=== PATIENT | female | born 1965 | race Caucasian/White ===

== ENCOUNTER 2020-11-12 09:31 | Emergency (ER) | payer MEDICAID, SELFPAY ==
[2020-11-12 09:35] VITALS: BP 161/92; PULSE 64; RESP 16; TEMP 36.8; O2SAT 96; BMI 29.2
[2020-11-12 09:44] VITALS: BP 161/92; PULSE 60; PULSE 62; RESP 18; O2SAT 97
--- NOTE | 2020-11-12 09:48 | XR_ITS ---
WS: [id number] XR hand RT min 3V* 35023 REASON FOR EXAM: pain, trauma FINDINGS: There is deformity of the DIP joint of the middle finger of the right hand. The distal phalanx is saira ewhat laterally subluxed compared to the middle phalanx. This could indicate a ligamentous injury at the joint level. No associated bony abnormality is identified. No significant abnormality is identified in the remainder of the examination. XR/XR hand RT min 3V* [id number] IMPRESSION: Possible ligamentous injury of the DIP of the middle finger as above.
--- NOTE | 2020-11-12 10:04 | W.ED.EXTPRO ---
HPI - Extremity Problem General: Chief complaint: Extremity Injury, Upper Stated complaint: R. Hand Injury Time Seen by Provider: 11/12/20 09:40 History of Present Illness: HPI Narrative: Complains about right hand pain after striking it on the ground to her door. She does have mild swelling also had cat scratch bite to the hand denies any redness fever chills. MD Complaint: extremity pain and extremity swelling Onset (ago): day(s) Pain Consistency: constant Location: right and lower extremity Severity scale (1-10): 4 Quality: aching Radiation: none Relieving factors: immobilization Exacerbating factors: range of motion Associated symptoms: Reports no associated symptoms; Deny chest pain, fever(s) or rash Review of Systems Const: Denies: fever(s), chills or body aches Eyes: Denies: change in vision or blurry vision ENMT: Denies: throat pain or nasal congestion Card: Denies: chest pain or dyspnea on exertion Resp: Denies: dyspnea, productive cough or non-productive cough GI: Denies: abdominal pain, nausea or vomiting Musc: Reports: extremity pain Skin/Breast: Denies: rash Neuro: Denies: headache(s) Psych: Denies: anxiety or depression Omer/Lymph: Denies: easy bruising PFSH ED PFSH: Social History Current gender identity: Female Physical Exam Const: COMMON NORMALS: no acute distress, average body habitus and patient oriented x3 HENMT: COMMON NORMALS: normocephalic HEAD & SCALP: normal to inspection and normocephalic FACE & SINUS: normal facial exam Eye: COMMON NORMALS: conjunctivae normal GENERAL EYE: appearance normal, both eyes and all related structures CONJUNCTIVA: Yes conjunctivae normal Neck/C-Spine: COMMON NORMALS: no JVD Chest: COMMONS NORMALS: normal inspection of the chest Resp: COMMON NORMALS: normal respiratory effort and clear to auscultation bilaterally AUSCULTATION: clear to auscultation bilaterally Cardio: COMMON NORMALS: no JVD, regular rate and regular rhythm RATE: regular rate RHYTHM: regular rhythm GI: COMMON NORMALS: Normal to inspection, nondistended, normoactive bowel sounds present Extremity: COMMON NORMALS: normal to inspection and full ROM RIGHT UPPER EXTREMITY: Yes hand & digits (Mild swelling tenderness to #3 and 4 digits bruising no redness) Neuro: COMMON NORMALS: patient oriented x3 Skin: OTHER: Right hand with couple scratches to it no redness or erythema noted to the hand mild swelling Course Vital Signs: Vital signs: Vital Signs Temperature 98.2 F 11/12/20 09:35 Pulse Rate 65 11/12/20 10:24 Respiratory Rate 16 11/12/20 10:24 Blood Pressure 118/80 11/12/20 10:24 Pulse Oximetry 99 11/12/20 10:24 MDM - Extremity (Nontraumatic) MDM Narrative: Medical decision making narrative: Patient follow-up with Dr. Maki if no significant provement patient states that her finger already had a slight bend to it from an old injury so radiology finding appears to be chronic instead of new Discharge Plan Discharge Patient Disposition: Home Clinical Impression: Contusion of hand, right Qualifiers: Encounter type: initial encounter Qualified Code(s): S60.221A - Contusion of right hand, initial encounter Condition: Stable Discharge Orders: Discharge ED (Routine); Ordered 11/12/20 Ordered By: Asim Arguelles Referrals: Justice Yao [Primary Care Provider] - Discharge Diet: Usual diet Discharge Activity: Resume usual activity Patient Instructions: Contusion in Adults (ED), Opioid Safety Activity Restrictions/Additional Instructions: Apply ice to area as needed. Follow-up with Dr. Maki if any further problems develop with it. Observe and watch for signs of infection. Coding Level of Care Code ED Etched Circuit Processor for Tamela Fwd Exam Comprehensive
[2020-11-12 10:24] VITALS: BP 118/80; PULSE 65; RESP 16; O2SAT 99
== END 2020-11-12 10:24 | disposition home or self-care (01) ==
PROVIDERS: Emergency Provider Nurse Practitioner Family; PCP Family Medicine
DX: S60.221A Contusion of right hand, initial encounter (principal); W22.8XXA Striking against or struck by other objects, initial encounter
CPT/HCPCS: 73130; 99282

== ENCOUNTER 2022-04-04 11:59 | Outpatient (CLI) | payer MEDICAID, SELFPAY ==
--- NOTE | 2022-04-04 12:10 | MM_ITS ---
WS: [id number] BILATERAL SCREENING DIGITAL TOMOSYNTHESIS MAMMOGRAM WITH CAD HISTORY: SCREENING COMPARISON: 05/28/2019 and 05/03/2018 Bilateral CC and MLO views with tomosynthesis and synthetic mammography submitted. Computer aided det ection analyzed. Breast composition: There are scattered areas of fibroglandular density. No suspicious masses, microc alcifications or architectural distortion. There are several calcifications scattered within the RIGH T breast. Similar to prior studies. MM/[place] [id number] IMPRESSION: BI-RADS: 2-Benign FOLLOW UP: 1 Year Follow-up
== END 2022-04-04 12:00 | disposition home or self-care (01) ==
LOC: RAD 12:00
PROVIDERS: PCP Family Medicine; Visit Provider Family Medicine
DX: Z12.31 Encounter for screening mammogram for malignant neoplasm of breast (principal)
CPT/HCPCS: 77063; 77067

== ENCOUNTER 2024-07-09 11:10 | Outpatient (CLI) | payer MEDICAID, SELFPAY ==
--- NOTE | 2024-07-09 11:20 | MM_ITS ---
WS: [id number] Bilateral screening 3D tomosynthesis digital mammogram, 07/09/2024 11:26 AM Clinical Data: SCREENING Comparison: 04/04/2022, 05/28/2019, 05/03/2018, 06/02/2014, 01/01/2013, 12/26/2011, 08/06/2010, 07/16/2010. Findings: No spiculated masses or clustered calcifications are seen. There are no secondary signs of carcinoma . MM/MM scr BI tomosynthesis [id number] Impression: Negative bilateral mammogram unchanged. Recommend annual screening mammograms. BIRADS: 1 - Negative. FOLLOW UP: 1 Year Follow-up DENSITY: There are scattered areas of fibroglandular density. The CAD mechanical and auto body car checker was used
== END 2024-07-09 11:11 | disposition home or self-care (01) ==
LOC: MOBLMAM 11:21
PROVIDERS: PCP Family Medicine; Visit Provider Family Medicine
DX: Z12.31 Encounter for screening mammogram for malignant neoplasm of breast (principal)
CPT/HCPCS: 77063; 77067

== ENCOUNTER → 2025-03-20 12:21 | Outpatient (BNVA) | payer MEDICAID, SELFPAY | PROVIDERS: PCP Family Medicine; Visit Provider Internal Medicine | DX: R07.89 Other chest pain (principal); I25.10 Atherosclerotic heart disease of native coronary artery without angina pectoris; R06.09 Other forms of dyspnea; Z79.02 Long term (current) use of antithrombotics/antiplatelets; Z79.82 Long term (current) use of aspirin; F17.210 Nicotine dependence, cigarettes, uncomplicated; R07.9 Chest pain, unspecified | CPT/HCPCS: 93005; 99204 ==

== ENCOUNTER 2025-04-22 10:06 | Outpatient (CLI) | payer MEDICAID, SELFPAY ==
--- NOTE | 2025-04-22 | ECG_ITS ---
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 Interpretive Statements Procedure: At the baseline, the blood pressure was 113/69 mmHg with a heart rate of 53 bpm. The electrocardiogram showed normal sinus rhythm, normal axis with mild nonspecific ST and T wave abnormalities. The Lexiscan was infused over a period of 20 seconds. A total of 0.4 mg of Lexiscan was infused. The stress phase was continued for a total of 5 minutes. Heart rate was at the end of stress phase was 77 bpm and a blood pressure of 73/54 mmHg. The EKG at the peak infusion revealed normal sinus rhythm with no significant ST-T wave changes. Sestamibi was injected 20 seconds after the Lexiscan infusion. Blood pressure at the end of recovery phase was 99/81 mmHg with a heart rate of 79 bpm. Conclusion: 1. Normal EKG response to Lexiscan infusion 2. No Lexiscan induced chest pain or cardiac arrhythmia. 3. Hypotensive blood pressure response and normal heart rate response. 4. Nuclear myocardial perfusion scan pending; see separate report. Electronically Signed On 04-22-2025 22:47:45 CDT by Moreno Salter M.D. [email or web address]
[2025-04-22 10:41] VITALS: BMI 26.5
--- NOTE | 2025-04-22 10:42 | NMCV_ITS ---
NM rosalind perf SPECT r/s* [id number] Drift, Laurie Age: 59 Gender: F : 1965 Exam Date: 04/22/2025 10:59 Ordering Phys: Dani Saravia M.D ([email or web address]) Technologist: ROJAS [place]ola Exam Location: [facility] Indications: cp STRESS TEST [facility] IMAGE PROTOCOL Rest/Stress 1 Lexiscan Day Radiopharmaceutical Dose (mCi) Administration Site Administered by Rest: Tc-99m 10.3 IV Karen Maciel, SALES FINANCIAL ANALYST Sestamibi Stress:Tc-99m 32.3 IV Karen Maciel, SALES FINANCIAL ANALYST Sestamibi Rest: 22-Apr-2025 60 Discovery 630 Stress: 22-Apr-2025 30 Discovery 630 0.4mg Lexiscan. Images obtained in supine and prone position. SPECT RESULTS Technical Quality: Good Raw Data Analysis: Normal Image Corrections: No attenuation or motion correction applied Summed Stress Score: 9 Summed Rest Score: 4 Summed Difference Score: 5 PERFUSION FINDINGS There is a large area of severely reduced tracer counts in the mid and basal inferior and inferolateral leiva with a significant amount of reversibility on the rest images compared to the stress images. Findings are consistent with infarction with a medium sized area of moderate radha-infarct ischemia. FUNCTIONAL RESULTS (calculated via Gated SPECT) Stress Image LV EF (%): 57 Stress EDV (mL):95 TID: 1.21 Stress ESV (mL):41 FUNCTIONAL FINDINGS: Inferior wall hypokinesis with overall normal ejection fraction of 57%. IMPRESSIONS 1. Medium sized area of inferior and inferolateral myocardial infarction with a medium sized area of radha-infarct ischemia 2. Inferior wall hypokinesis with overall normal ejection fraction of 57%. Moreno Salter MD, FACC (Electronically Signed) Final Date: 22 April 2025 22:20 S
[2025-04-22 11:47] VITALS: BP 112/86; PULSE 60
[2025-04-22] MEDS: aminophylline 25 mg/mL SDV 20 mL IVP (11:55)
== END 2025-04-22 10:07 | disposition home or self-care (01) ==
LOC: CDL 10:09
PROVIDERS: PCP Family Medicine; Visit Provider Internal Medicine
DX: R07.9 Chest pain, unspecified (principal); R06.09 Other forms of dyspnea; I21.19 ST elevation (STEMI) myocardial infarction involving other coronary artery of inferior wall; I51.89 Other ill-defined heart diseases
CPT/HCPCS: 36415; 78452; 93017; 93306; 96374; 96375; A9500; J0280; J2785

== ENCOUNTER 2025-05-05 07:04 | Outpatient (CLI) | payer MEDICAID, SELFPAY ==
[2025-05-05] VITALS (21 sets, daily range): BP systolic 90–156; BP diastolic 59–98; PULSE 58–74; RESP 14–20; TEMP 37.1; O2SAT 92–97; BMI 27.1
[2025-05-05 07:37] LABS: Hematocrit 42.6 % (36-47); Hemoglobin 14.30 g/dL (11.27-16.99); Mean Corpuscular HGB Conc 33.6 g/dL (30-55); Mean Corpuscular Hemoglobin 31.8 pg (27-33); Mean Corpuscular Volume 94.7 fl (85-98); Nucleated Red Blood Cells % 0 %; Platelet Count 329 10^3/cmm (157-399); Red Blood Count 4.50 10^6/uL (3.85-5.65); White Blood Count 8.94 10^3/uL (3.29-11.43)
[2025-05-05 08:02] LABS: Blood Urea Nitrogen 17 mg/dL (8-23); Calcium 9.3 mg/dL (8.5-10.5); Carbon Dioxide 25 mmol/L (22-29); Chloride 105 mmol/L (98-107); Creatinine Clr Calc Pharmacy 79.8730; Glucose 109 mg/dL (65-115); Osmolality Calculated 294 mOsm/kg (285-295); Sodium 141 mmol/L (136-145)
[2025-05-05 08:03] LABS: Anion Gap 14.8 (5-19); Potassium 3.8 mmol/L (3.5-5.1)
--- NOTE | 2025-05-05 08:30 | XACV_ITS ---
Exam Room: 2 Ht: 160 cm Wt: 69 kg BSA: 1.77 m2 Gender: Female : 1965 Any Known Allergies: Other Exam Priority: Routine Procedure(s): Procedure Description: Diagnostic procedure Procedure Description: Coronary Angiography Diagnostic Cath Status: Elective Diagnostic Findings * INDICATION: Chest pain/ abnormal stress test. * Left Anterior Descending has mild to moderate mid vessel coronary artery disease. * Mid Right Coronary Artery: Chronic total occlusion with occluded prior stents, NOAH: 0 flow. Left to right collaterals. * Left Main has no disease. * Mid Circumflex: subtotal occlusion, NOAH: 1 flow. * First Obtuse Marginal Branch Segment: obstructive 60% stenosis, NOAH: 3 flow. * Coronary angiography shows right dominance. Interventional Findings * We attempted to briefly to cross subtotally occluded mid to distal left circumflex artery artery. Wire could not cross. Given small to medium size of vessel, we decided to treated medically. Patient left laboratory helper in a stable condition. Conclusions 1. Chronic total occlusion of mid RCA with occluded prior stents. [id number] collaterals. Medical therapy. Subtotally occluded mid to distal left circumflex artery. Small to medium sized artery. Brief attempt at wiring was unsuccessful. Will medically manage it.. Recommendations * Aggressive medical therapy for coronary artery disease. * Outpatient cardiology follow up in 2 weeks. Interventional RX Recommendation: medical therapy and/or counseling Diagnostic RX Recommendation: medical therapy and/or counseling Anticoagulation: Heparin Pressures Phase:Rest AO : 101 / 57 ( 75 ) @ 10:59:00 AM 127 / 59 ( 86 ) @ 11:06:00 AM 112 / 66 ( 85 ) @ 11:08:00 AM Clinical Evaluation EBL: 5mL-10mL Procedural Details Procedure Consent Obtained. Admit Source: Out Patient. Pre-Procedure Time Out. Identified patient by full name and date of as verbalized by the patient/guarantor. Does the consent match the physician's order: Yes. Accurate & Complete Informed Consent: Yes. Inpatient/Outpatient History & Physical on Chart: Yes. If H&P is completed, is and addenduem needed: No; If yes, is the addendum complete: N/A. Visualize and Verify Site with Patient/Guarantor: N/A. Relevant Radiology Images available: No. The risks, benefits, and alternatives of sedation and/or procedure were discussed by physician. The patient agrees to continue. Procedure started. [facility] Clinical Fraility Score: 3: Managing Well. 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 Chest Pain Symptom Assessment: Typical Angina Symptoms. Correct patient, site and procedure confirmed by cath team. Current diagnosis: Chest Pain, Abnormal stress test. PERRLA. Strong, equal hand retail shift supervisor bilaterally. Lungs clear x 5 lobes. IV Site on Arrival: 20 gauge in the left anticubital. IV Fluids: 0.9% NaCl at KVO. 0 mL infused prior to laboratory helper. Pre Procedural Pulses: bilateral radial was 3+. Pre Procedural Pulses: bilateral dorsalis pedis was Doppled. Pre Procedural Pulses: bilateral posterior tibial was Doppled. Oxygen started at 2liters/min via nasal canula. right radial was prepped with chloroprep then draped in the usual sterile fashion. right groin was prepped with chloroprep then draped in the usual sterile fashion. Physician notified. Baseline sample Acquired. HR: 53 BPM. Physician arrived. Physician scrubbed in. Immediate Pre-Procedure Time Out. Correct Patient: Yes; Correct Procedure: Yes; Correct Site: Yes; Correct Patient Position: Yes; Correct Supplies: Yes; Dried Flammable Prep: Yes; Blood Products Available: No;. Lidocaine 1% infiltrated to the right radial. Arterial access obtained. A 5 romanian TIG catheter in over wire. Multiple views taken of left coronary artery. Catheter redirected to the RCA. Multiple views taken of right coronary artery. Catheter removed over the exchange wire. Add inventory: Co-helicopter pilot, Endoflator Kit X 2. 6 romanian XB 3 guide catheter was inserted over the wire. Runthrough guidewire was advanced through the guide catheter to lesion in the mid Circ. 2.0 X 12mm AB trek balloon in over wire for crossing support. Balloon out. Hot Mill Worker 50 guidewire was advanced through the guide catheter to lesion in the mid Circ. Runthrough wire out. 2.0 X 12mm AB trek balloon in over helicopter pilot wire for crossing support. Unable to cross, balloon and wire out. Angiography performed. Guide catheter out. Post Procedure: Pulses reassessed and unchanged. PERRLA. Strong, equal hand retail shift supervisor bilaterally. No VTE prophylaxis required. Medication's Wasted: Lidocaine 1% = 18 mL. Medication's Wasted: Nitro = 50 mg. Medication's Wasted: Other = Fentanyl 50 mcg. Total IV fluids: 300 mL. Post-op diagnosis: Subtotal occlusion mid circumflex. Unsuccessful attempt for revascularization. Complications: None. Estimated blood loss: 5mL-10mL. Responsiveness - Normal response to verbal stimuli; alert and oriented, PERRLA. Airway - Unaffected, no intervention required; spontaneous ventilation. Circulation: W/N/L, pulses unchanged. Nausea/Vomiting: No. A TR Band was successful obtaining hemostatsis at the Right Radial artery insertion site. Procedure completed. Patient transferred by wheelchair to 1st floor. Vital chart was stopped. Access Site Site: Right Radial artery Sheath Size: 6 Fr Hemostasis Method: TR Band Hemostasis Success: Successful Procedure Medications Start: 9:51 AM Stop: 9:51 AM Medication: Versed Amount: 1 mg Route: I.V. Start: 9:51 AM Stop: 9:51 AM Medication: Fentanyl Amount: 50 mcg Route: I.V. Start: 9:57 AM Stop: 9:57 AM Medication: 0.9% Saline Amount: 250 ml Route: I.V. bolus Start: 9:59 AM Stop: 9:59 AM Medication: Heparin Amount: 5000 units Route: I.V. Start: 10:06 AM Stop: 10:06 AM Medication: Versed Amount: 1 mg Route: I.V. Start: 10:07 AM Stop: 10:07 AM Medication: Heparin Amount: 1000 units Route: I.V. I, the attending physician, have reviewed and verified all procedure medications. Yes, all medications given per verbal order History/Risk Factors Hypertension: No Dyslipidemia: No Peripheral Arterial Disease (PAD): No Myocardial Infarction (PR): No Obesity: No Renal Disease: No Prior Interventions PCI: Yes CABG: No Valve Surgery: No Report Signatures Finalized by Dani Saravia MD on 05/18/2025 02:12 PM
--- NOTE | 2025-05-05 09:50 | W.PM.OPSFHP ---
Same Day Surgery H&P Indication for Procedure/HPI DATE OF PROCEDURE: May 05, 2025 CHIEF COMPLAINT/INDICATIONFOR SURGICAL PROCEDURE: Chest pain/ Abnormal stress test PREOP DIAGNOSIS: Chest pain/ Abnormal stress test PLANNED PROCEDURE: Operation Date: 05/05/25 08:30 Proposed Procedures p Cardiac Catheterization - [facility] w/wo LV & Coros(Left) - Dani Saravia M.D Possible percutaneous coronary intervention 59-year-old woman with past medical history of CAD with prior stents, hypertension, hyperlipidemia who has been having chest discomfort episodes that are worsening. Also has dyspnea on exertion. Stress test was performed that was abnormal. Plan for coronary angiogram with possible PCI Medications/Allergies* Home Medications ?Medication ?Instructions ?Recorded ?Confirmed ?Type albuterol sulfate 90 mcg/actuation 2 puff inhalation Q4H PRN 03/20/25 05/02/25 History aerosol inhaler (Ventolin HFA) Shortness Of Breath aspirin 81 mg tablet 81 mg PO DAILY 03/20/25 05/02/25 History atorvastatin 40 mg tablet (Lipitor) 40 mg PO DAILY 03/20/25 05/02/25 History cetirizine 10 mg tablet 10 mg PO DAILY PRN Allergic 03/20/25 05/02/25 History Symptoms clopidogrel 75 mg tablet 75 mg PO DAILY 03/20/25 05/02/25 History cyanocobalamin (vitamin B-12) 1,000 mcg PO DAILY 03/20/25 05/02/25 History 1,000 mcg capsule diclofenac sodium 25 mg 25 mg PO BID 03/20/25 05/02/25 History tablet,delayed release docusate sodium 100 mg capsule 100 mg PO BID 03/20/25 05/02/25 History (Colace) fluticasone 250 mcg-salmeterol 50 1 inh inhalation BID 03/20/25 05/02/25 History mcg/dose blistr powdr for inhalation (Advair Diskus) hydroxyzine HCl 25 mg tablet 25 mg PO TID PRN Allergic Symptoms 03/20/25 05/02/25 History isosorbide mononitrate 120 mg 120 mg PO DAILY 03/20/25 05/02/25 History tablet,extended release 24 hr levothyroxine 125 mcg tablet 125 mcg PO DAILY 03/20/25 05/02/25 History (Synthroid) loratadine 10 mg tablet 10 mg PO DAILY 03/20/25 05/02/25 History metoprolol tartrate 50 mg tablet 50 mg PO BID 03/20/25 05/02/25 History montelukast 10 mg tablet 10 mg PO DAILY 03/20/25 05/02/25 History naloxone 4 mg/actuation nasal 4 mg intranasal Q2M PRN Allergic 03/20/25 05/02/25 History spray (Narcan) Symptoms nitroglycerin 400 mcg/spray 1 spray translingual Q5M PRN Chest 03/20/25 05/02/25 History translingual Pain pantoprazole 40 mg tablet,delayed 40 mg PO DAILY 03/20/25 05/02/25 History release prednisolone acetate 1 % eye 1 drp ophthalmic (eye) QID 03/20/25 05/02/25 History drops,suspension pregabalin 150 mg capsule (Lyrica) 150 mg PO TID 03/20/25 05/02/25 History sucralfate 1 gram tablet (Carafate) 1 g PO BID 03/20/25 05/02/25 History tizanidine 2 mg capsule 2 mg PO Q8H PRN Muscle Spasm 03/20/25 05/02/25 History Allergies/Adverse Reactions Allergy/AdvReac Type Severity Reaction Status Date / Time tioconazole (From Monistat 1 Allergy Intermediate Bottom Verified 05/05/25 07:52 (tioconazole)) swells up Current Medications: Generic Name Dose Route Start Last Admin Trade Name Freq PRN Reason Stop Dose Admin Sodium Chloride 1,000 mls @ 50 mls/hr 05/05/25 07:30 05/05/25 07:47 Sodium Chloride 0.9% IV 05/06/25 03:29 Not Given .Q20H ONE Pertinent History/Comorbid Conditions* Social History Smoking and tobacco/nicotine status: current every day tobacco/nicotine user (1 pack a day) Current gender identity: Female Pertinent Exam Findings alert, oriented x 3, clear to auscultation bilaterally and regular rate & rhythm Conscious Sedation Assessment PATIENT ASSESSED PRIOR TO SEDATION, WITH NO CHANGE NOTED: Yes AIRWAY EVAL/ANESTHESIA PLAN: normal airway, ASA III, Local Anesthesia, Risks, benefits & alternatives of sedation and/or procedure discussed and Patient agrees to continue as planned ADDITIONAL INFORMATION: Moderate sedation Recommendations Risks and benefits of procedure reviewed and Patient/family agree to proceed Surgery/Procedure today (Left heart cath with possible percutaneous coronary intervention) Coding Level of Care Code Acute Code for [facility] Fwd
--- NOTE | 2025-05-05 10:30 | PC.NURSE ---
Received the patient back from the laborer landscape via wheelchair s/p Diagnostic [facility]. Patient ambulated to the cot without difficulty. A & 0 x 3. wrapper layer placed and vital signs obtained. TR band intact to the right wrist. No bleeding or hematoma noted. Palpable radial pulse. No other assessment changes noted from pre cath assessment. No concerns voiced at this time.
--- NOTE | 2025-05-05 10:35 | PM.PROC ---
Procedure Note: Date of procedure: 05/05/25 Pre-procedure diagnosis: Chest pain/ abnormal stress test Post-procedure diagnosis: other Procedure: Left main artery is patent. LAD has mild to moderate luminal irregularities. Left circumflex artery gives rise to OM branch. In mid to distal segment it is a small to medium sized vessel with subtotal occlusion. Brief attempt at wiring it was unsuccessful. Medical management. RCA ASSEMBLER TYPE BAR AND SEGMENT with occluded prior stents Aggressive risk factor modification and medical management Performing Provider: Dani Saravia Complications: None Condition: stable Disposition: same day Coding [facility]
--- NOTE | 2025-05-05 11:17 | PC.NURSE ---
Report to assuming nurse, Jakub Hdz RN.
== END 2025-05-05 14:27 | disposition home or self-care (01) ==
PROVIDERS: PCP Family Medicine; Visit Provider Internal Medicine
DX: I25.118 Atherosclerotic heart disease of native coronary artery with other forms of angina pectoris (principal); I25.82 Chronic total occlusion of coronary artery; Z95.5 Presence of coronary angioplasty implant and graft; Z79.82 Long term (current) use of aspirin; K21.9 Gastro-esophageal reflux disease without esophagitis; F17.210 Nicotine dependence, cigarettes, uncomplicated
CPT/HCPCS: 36415; 80048; 85025; 93454; 99152; 99153; C1725; C1769; C1887; C1894; J1644; J2250; J3010; J3490; J7030; J9999; Q0163; Q9967

== ENCOUNTER → 2025-05-21 12:51 | Outpatient (BNVA) | payer MEDICAID, SELFPAY | PROVIDERS: PCP Family Medicine; Visit Provider Internal Medicine | DX: I25.118 Atherosclerotic heart disease of native coronary artery with other forms of angina pectoris (principal); F17.200 Nicotine dependence, unspecified, uncomplicated | CPT/HCPCS: 99214 ==

== ENCOUNTER 2025-07-31 11:49 | Emergency (ER) | payer MEDICAID, SELFPAY ==
[2025-07-31 12:04] VITALS: BP 126/94; PULSE 82; RESP 18; TEMP 36.7; O2SAT 96; BMI 27.8
--- NOTE | 2025-07-31 12:22 | ED_ITS ---
HPI - Abdominal Pain 2 General: Chief Complaint: Abdominal Pain Stated Complaint: rt mid abd pain Time Seen by Provider: 07/31/25 12:06 History of Present Illness: 60-year-old female presents emergency ro om complaining of right sided flank pain right upper quadrant radiates into her back. She denies any dysuria urgency or frequency no hematuria she has had some vomiting she has also had some loose acholic stools intermittently. This been going on intermittently for the last several months. It is worse after she eats. She denies fever sweats or chills no hematochezia melena hematemesis coffee-ground emesis Associated Symptoms: Denies chills, dysuria and fever(s) Related Data Home Medications ?Medication ?Instructions ?Recorded ?Confirmed albuterol sulfate 90 mcg/actuation 2 puff inhalation Q 4H PRN 03/20/25 07/31/25 aerosol inhaler (Ventolin HFA) Shortness Of Breath aspirin 81 mg tablet 81 mg PO DAILY 03/20/2512/20 atorvastatin 40 mg tablet (Lipitor) 40 mg PO DAILY 07/31/25 cetirizine 10 mg tablet 10 mg PO DAILY PRN Allergic 03/20/25 07/31/25 Symptoms clopidogrel 75 mg tablet 75 mg PO DAILY 03/20/2512/20 cyanocobalamin (vitamin B-12) 1,000 mcg PO DAILY 03/2007/31/25 1,000 mcg capsule diclofenac sodium 25 mg 25 mg PO BID 03/20/25 tablet,delayed release docusate sodium 100 mg capsule 100 mg PO BID PRN Const ipation 03/20/25 07/31/25 (Colace) fluticasone 250 mcg-salmeterol 50 1 inh inhalation BID 03/20/25 07/31/25 mcg/dose blistr powdr for inhalation (Advair Diskus) hydroxyzine HCl 25 mg tablet 25 mg PO TID PRN Allergic Symptoms 03/20/25 07/31/25 isosorbide mononitrate 120 mg 120 mg PO DAILY 03/20/25 07/31/25 tablet,extended release 24 hr levothyroxine 125 mcg tablet 125 mcg PO QAM 03/20/25 1 10/01/24 (Synthroid) loratadine 10 mg tablet 10 mg PO DAILY 03/20/2512/20 metoprolol tartrate 50 mg tablet 50 mg PO BID 03/20/25 07/31/25 montelukast 10 mg tablet 10 mg PO DAILY 03/20/2512/20 naloxone 4 mg/actuation nasal 4 mg intranasal Q2M PRN Allergic 03/20/25 07/31/25 spray (Narcan) Symptoms nitroglycerin 400 mcg/spray 1 spray translingual Q5M P RN Chest 03/20/25 07/31/25 translingual Pain pantoprazole 40 mg tablet,delayed 40 mg PO DAILY 03/2007/31/25 release pregabalin 150 mg capsule (Lyrica) 150 mg PO TID 03/2007/31/25 sucralfate 1 gram tablet (Carafate) 1 g PO BID PRN sto mach irritation 03/20/25 07/31/25 tizanidine 2 mg capsule 2 mg PO Q8H PRN Muscle Spasm 03/20/25 07/31/25 cholecalciferol (vitamin D3) 1,250 50,000 mcg PO Q7D 1 10/01/24 07/31/25 mcg (50,000 unit) capsule hydrocodone 10 mg-acetaminophen 1 tab PO Q6H PRN Pain 07/31/25 07/31/25 325 mg tablet Previous Rx's ?Medication ?Instructions ?Recorded ranolazine 500 mg tablet,extended 500 mg PO BID #60 ta bs 05/09/25 release,12 hr hydrocodone 5 mg-acetaminophen 325 1 tab PO Q6H PRN pa in #10 tabs 07/31/25 mg tablet promethazine 25 mg tablet 25 mg PO Q6H PRN nausea and 07/31/25 vomiting #20 tabs Allergies Allergy/AdvReac Type Severity Reaction Status Date / Time tioconazole (From Monistat 1 Allergy Intermediate Bottom Verified 05/21/25 12:58 (tioconazole)) swells up Review of Systems 2 Const: Denies: fever(s) or chills Card: Denies: chest pain Resp: Denies: dyspnea GI: Denies: abdominal pain : Denies: dysuria, urinary frequency or urinary urgency Musc: Denies: neck pain or back pain Skin/Breast: Denies: rash PFSH ED 2 PFSH: Social History Smoking and tobacco/nicotine status: current every day tobacco/nicotine user (1 pack a day) Current gender identity: Female Physical Exam 2 Const: GENERAL APPEARANCE: cooperative ORIENTATION/CONSCIOUSNESS: Yes awake, Yes oriented to person, Yes oriented to place and Yes oriented to time HENMT: COMMON NORMALS: normocephalic, atraumatic and hearing grossly normal bilaterally HEAD & SCALP: normocephalic and atraumatic Resp: COMMON NORMALS: normal respiratory effort, No retractions, No use of accessory muscles and clear to auscultation bilaterally AUSCULTATION: clear to auscultation bilaterally Cardio: COMMON NORMALS: regular rate, regular rhythm and No murmurs present (Cardio) RATE: regular rate RHYTHM: regular rhythm GI: COMMON NORMALS: No hepatosplenomegaly present AUSCULTATION: Yes normoactive bowel sounds PALPATION: Yes Tenderness to palpation present (GI) Details: RUQ, No Guarding due to palpation present (GI) and Yes No hepatosplenomegaly present Extremity: COMMON NORMALS: normal to inspection, capillary refill normal, no clubbing, cyanosis or edema, no calf tenderness and no pedal edema Neuro: SENSORIUM/ORIENTATION: Yes oriented to person, Yes oriented to place and Yes oriented to time Skin: COMMON NORMALS: no rashes or lesions noted GENERAL SKIN EXAM: no rashes or lesions noted Course 2 Vital Signs: Vital signs: Vital Signs Temperature 98.1 F 07/31/25 12:04 Pulse Rate 82 07/31/25 12:04 Respiratory Rate 18 07/31/25 12:04 Blood Pressure 126/94 07/31/25 12:04 Pulse Oximetry 96 07/31/25 12:04 Oxygen Delivery Me thod Room Air 07/31/25 12:04 MDM - Abdominal Pain Medical Decision Making Medical decision making Social determinants: None I reviewed the patient's medical record. I reviewed the patient's current home meds. Alternate historians: None Differential diagnosis: Acute cholecystitis, cholelithiasis, biliary colic, bowel obstruction, pancreatitis, peptic ulcer disease Lab Review: Labs reviewed no leukocytosis. Creatinine slightly elevated from her baseline in the chart. She has a very slight anion gap at 21.1. Urine showed 6-10 red blood cells but also showed 11-20 squamous cells. Negative nitrates and trace leukocyte esterase. Imaging: CT abdomen unremarkable no signs of nephrolithiasis pyelonephritis. Gallbladder ultrasound did not show any acute cholecystitis or cholelithiasis. On the CT the base of the lungs with question of ground glass opacities left greater than the right patient has no respiratory symptoms and has not had a fever or no hypoxia. Liver functions normal. Assessment of risk Level of risk: Moderate Hospitalization considerations: Considered hospitalization for gallbladder disease if present pending remainder of workup. Reexamination: Repeat exam symptoms have improved. Lungs are clear patient denies shortness of breath dysuria urgency or frequency. Right upper quadrant pain improved Assessment and plan: On repeat exam patient has improved. Will discharge home reviewed different foods that could trigger biliary colic suspect she has biliary dyskinesia will refer her for HIDA scan and to general surgery Lab Data 07/31/25 12:20 07/31/25 12:20 Labs/Radiology: Radiology Impressions Gallbladder Ultrasound 07/31/25 12:46 IMPRESSION: Normal right upper quadrant ultrasound. Abdomen/Pelvis CT 07/31/25 13:11 IMPRESSION: 1. No hydronephrosis in either kidney. No obstructing renal or ureteral calculi. 2. Normal appendix. 3. Normal noncontrast liver and gallbladder. 4. Slight hazy groundglass opacities in the lung bases LEFT greater than RIGHT may be infectious or inflammatory. Laboratory Results WBC 7.83 10^3/uL (3.29-11.43) 07/31/25 12:20 RBC 5.15 10^6/uL (3.85-5.65) 07/31/25 12:20 Hgb 15.70 g/dL (11.27-16.99) 07/31/25 12:20 Hct 46.6 % (36-47) 07/31/25 12:20 MCV 90.5 fl (85-98) 07/31/25 12:20 MCH 30.5 pg (27-33) 07/31/25 12:20 MCHC 33.7 g/dL (30-55) 07/31/25 12:20 RDW 12.9 % (12.1-15.1) 07/31/25 12:20 Plt Count 333 10^3/cmm (157-399) 07/31/25 12:20 MPV 9.0 fL (7.4-10.4) 07/31/25 12:20 Neut % (Auto) 63.5 % 07/31/25 12:20 Lymph % (Auto) 24.5 % 07/31/25 12:20 [place] % (Auto) 9.7 % 07/31/25 12:20 Eos % (Auto) 0.9 % 07/31/25 12:20 Baso % (Auto) 0.9 % 07/31/25 12:20 Neut # (Auto) 4.97 10^3/uL (1.8-7.7) 07/31/25 12:20 Lymph # (Auto) 1.9 10^3/uL (0.8-4.8) 07/31/25 12:20 [place] # (Auto) 0.8 10^3/uL (0.2-0.9) 07/31/25 12:20 Eos # (Auto) 0.1 10^3/uL (0.0-0.8) 07/31/25 12:20 Baso # (Auto) 0.1 10^3/uL (0.0-0.1) 07/31/25 12:20 Nucleated RBC % (auto) 0 % 07/31/25 12:20 Nucleated RBCs # 0.0 /100WBC 07/31/25 12:20 Sodium 135 mmol/L (136-145) L 07/31/25 12:20 Potassium 4.1 mmol/L (3.5-5.1) 07/31/25 12:20 Chloride 100 mmol/L (98-107) 07/31/25 12:20 Carbon Dioxide 18 mmol/L (22-29) L 07/31/25 12:20 Anion Gap 21.1 (5-19) H 07/31/25 12:20 BUN 18 mg/dL (8-23) 07/31/25 12:20 Creatinine 1.3 mg/dL (0.5-0.9) H 07/31/25 12:20 GFR Calculation 41.6 mL/min (90-130) L 07/31/25 12:20 Glucose 138 mg/dL (65-115) H 07/31/25 12:20 Calculated Osmolality 284 mOsm/kg (285-295) L 07/31/25 12:20 Calcium 9.5 mg/dL (8.5-10.5) 07/31/25 12:20 Total Bilirubin 0.4 mg/dL (0.15-1.2) 07/31/25 12:20 AST 28 U/L (0-32) 07/31/25 12:20 ALT 24 U/L (0-33) 07/31/25 12:20 Alkaline Phosphatase 93 U/L (35-105) 07/31/25 12:20 Total Protein 8.4 g/dL (6.6-8.7) 07/31/25 12:20 Albumin 4.7 g/dL (3.5-5.2) 07/31/25 12:20 Globulin 3.7 g/dL (1.3-4.6) 07/31/25 12:20 Lipase 27 U/L (13-60) 07/31/25 12:20 Urine Color Dark yellow (Yellow) A 07/31/25 12:43 Urine Appearance Cloudy (CLEAR) A 07/31/25 12:43 Urine pH 5.0 (5-7) 07/31/25 12:43 Ur Specific [place] 1.029 (1.005-1.030) 07/31/25 12:43 Urine Protein 2+ (Negative) A 07/31/25 12:43 Urine Glucose (UA) Negative (Normal) 07/31/25 12:43 Urine Ketones Trace (Negative) 07/31/25 12:43 Urine Blood Trace (Negative) A 07/31/25 12:43 Urine Nitrate Negative (Negative) 07/31/25 12:43 Urine Bilirubin 2+ (Negative) H 07/31/25 12:43 Urine Urobilinogen 1.0 mg/dL (Negative) 07/31/25 12:43 Ur Leukocyte Esterase Trace (Negative) A 07/31/25 12:43 Urine RBC 6-10 /hpf (0-2) 07/31/25 12:43 Urine WBC 0-5 /hpf (0-5) 07/31/25 12:43 Ur Squamous Epith Cells 11-20 /hpf (0-5) H 07/31/25 12:43 Amorphous Sediment Not Reportable 07/31/25 12:43 Urine Bacteria Trace /hpf (NONE) 07/31/25 12:43 Hyaline Casts 212.25 /lpf 07/31/25 12:43 All radiology interpretation(s) finalized by discharge Discharge Plan Discharge Patient Disposition: Home Clinical Impression: Biliary colic Condition: Stable Prescriptions: New hydrocodone-acetaminophen 5-325 mg tablet 1 tab PO Q6H PRN (Reason: pain) Qty: 10 0RF promethazine 25 mg tablet 25 mg PO Q6H PRN (Reason: nausea and vomiting) Qty: 20 0RF No Action atorvastatin [Lipitor] 40 mg tablet 40 mg PO DAILY fluticasone propion-salmeterol [Advair Diskus] 250-50 mcg/dose blister with device 1 inh inhalation BID cetirizine 10 mg tablet 10 mg PO DAILY PRN (Reason: Allergic Symptoms) sucralfate [Carafate] 1 gram tablet 1 g PO BID PRN (Reason: stomach irritation) clopidogrel 75 mg tablet 75 mg PO DAILY isosorbide mononitrate 120 mg tablet extended release 24 hr 120 mg PO DAILY pantoprazole 40 mg tablet,delayed release (DR/EC) 40 mg PO DAILY levothyroxine [Synthroid] 125 mcg tablet 125 mcg PO QAM metoprolol tartrate 50 mg tablet 50 mg PO BID nitroglycerin 400 mcg/spray spray,non-aerosol 1 spray translingual Q5M PRN (Reason: Chest Pain) Rx Instructions: do not exceed 3 doses per episode diclofenac sodium 25 mg tablet,delayed release (DR/EC) 25 mg PO BID docusate sodium [Colace] 100 mg capsule 100 mg PO BID PRN (Reason: Constipation) montelukast 10 mg tablet 10 mg PO DAILY hydroxyzine HCl 25 mg tablet 25 mg PO TID PRN (Reason: Allergic Symptoms) aspirin 81 mg tablet 81 mg PO DAILY albuterol sulfate [Ventolin HFA] 90 mcg/actuation HFA aerosol inhaler 2 puff inhalation Q4H PRN (Reason: Shortness Of Breath) loratadine 10 mg tablet 10 mg PO DAILY tizanidine 2 mg capsule 2 mg PO Q8H PRN (Reason: Muscle Spasm) pregabalin [Lyrica] 150 mg capsule 150 mg PO TID cyanocobalamin (vitamin B-12) 1,000 mcg capsule 1,000 mcg PO DAILY naloxone [Narcan] 4 mg/actuation spray,non-aerosol 4 mg intranasal Q2M PRN (Reason: Allergic Symptoms) Rx Instructions: spray 1 dose into ONE nostril; alternate nostrils w each dose until help arrives ranolazine 500 mg tablet extended release 12 hr 500 mg PO BID Qty: 60 3RF hydrocodone-acetaminophen 10-325 mg tablet 1 tab PO Q6H PRN (Reason: Pain) cholecalciferol (vitamin D3) 1,250 mcg (50,000 unit) capsule 50,000 mcg PO Q7D Rx Instructions: ' Discharge Orders: Discharge ED (Routine); Ordered 07/31/25 Ordered By: Rio Araujo Referrals: Justice Yao [Primary Care Provider, Family Practice] Patient Instructions: Biliary Colic (ED), Abdominal Pain (ED), Opioid Safety, Pain Management, Patient Portal & Anjana Instructions Activity Restrictions/Additional Instructions: [facility] your healthcare needs today. It is very important that you follow up as instructed or that you return to the Emergency Department should you have concerns or if your condition changes or worsens in any way. Emergency department visits are focused on emergent conditions, in some cases you may require further evaluation on an outpatient basis. You were seen in the emergency room with right upper quadrant pain. Evaluation shows you have a biliary colic. You are given hydrocodone and promethazine to use as needed. Avoid fatty foods red meats dairy foods citrus foods tomato- based products and fried foods. All of these foods can trigger your symptoms. Case management make arrangements for her to have an outpatient HIDA scan and follow-up with general surgery. (Please note that included in your discharge packet is information concerning opioid safety and pain management. This information is given to all patients were discharged from the ER regardless of their discharge diagnosis or the medicines they usually take or are prescribed.) Print Language: Portuguese Coding Level of Care Code ED Scrub Wheel Operator for Tamela Borges
[2025-07-31 12:28] LABS: Hematocrit 46.6 % (36-47); Hemoglobin 15.70 g/dL (11.27-16.99); Mean Corpuscular HGB Conc 33.7 g/dL (30-55); Mean Corpuscular Hemoglobin 30.5 pg (27-33); Mean Corpuscular Volume 90.5 fl (85-98); Nucleated Red Blood Cells % 0 %; Platelet Count 333 10^3/cmm (157-399); Red Blood Count 5.15 10^6/uL (3.85-5.65); White Blood Count 7.83 10^3/uL (3.29-11.43)
--- NOTE | 2025-07-31 12:46 | US_ITS ---
WS: [id number] RIGHT UPPER QUADRANT ULTRASOUND HISTORY: RUQ ABD PAIN COMPARISON: None available. Liver: 16.7 cm in length. Normal size liver and echogenicity. No bile duct dilatation or mass. Portal Vein: Normal hepatopetal flow with monophasic waveform. Gallbladder: Normally distended gallbladder with no stones or wall thickening. CBD: 0.6 cm Pancreas: Normal size and echogenicity. Right kidney: 10.1 cm in length. Normal size and echogenicity. No hydronephrosis or mass. Aorta and IVC: Unremarkable abdominal aorta and IVC. No ascites. US/US gall bladder 35040 IMPRESSION: Normal right upper quadrant ultrasound.
[2025-07-31 12:47] LABS: Alanine Aminotransferase 24 U/L (0-33); Albumin Level 4.7 g/dL (3.5-5.2); Alkaline Phosphatase 93 U/L (35-105); Anion Gap 21.1 (5-19); Aspartate Amino Transferase 28 U/L (0-32); Blood Urea Nitrogen 18 mg/dL (8-23); Calcium 9.5 mg/dL (8.5-10.5); Carbon Dioxide 18 mmol/L (22-29); Chloride 100 mmol/L (98-107); Globulin 3.7 g/dL (1.3-4.6); Glucose 138 mg/dL (65-115); Lipase 27 U/L (13-60); Osmolality Calculated 284 mOsm/kg (285-295); Potassium 4.1 mmol/L (3.5-5.1); Sodium 135 mmol/L (136-145); Total Protein 8.4 g/dL (6.6-8.7)
[2025-07-31 12:55] LABS: Glucose Urine UA Negative (Normal); Nitrate Urine Negative (Negative); Specific Gravity, Urine 1.029 (1.005-1.030)
[2025-07-31 12:57] LABS: Add Urine Microscopic? YES; Universal Test for UA Present (0)
[2025-07-31 13:06] LABS: UA Slide Review UA Slide Review Perf
--- NOTE | 2025-07-31 13:11 | CT_ITS ---
WS: [id number] CT ABDOMEN PELVIS TECHNIQUE: Noncontrast CT of the abdomen and pelvis with coronal and sagittal reformatted images. CLINICAL INFORMATION: flank pain COMPARISON: Outside CT 09/09/2014 DLP: 536.[address] scans at [facility] use at least one of these dose optimization techniques: automated exposure control; mA and/or kV adjustment per patient size (includes targeted exams where dose is matched to clinical indication); or iterative reconstruction. FINDINGS: No hydronephrosis in either kidney. No obstructing renal or ureteral calculi. Hazy groundglass opacities in the LEFT greater than RIGHT lower lobes. Subsegmental atelectasis in the lingula and lower lobes. Noncontrast liver is normal. Normal noncontrast spleen. Normal GE junction. Adrenal glands are normal. Normal noncontrast pancreas. Splenic artery calcification. Normal gallbladder. Tiny fat-containing umbilical hernia. Normal appendix in the RIGHT lower quadrant. Tiny fat-containing umbilical hernia. Normal sigmoid colon. CT/CT kidney stone [id number] IMPRESSION: 1. No hydronephrosis in either kidney. No obstructing renal or ureteral calcul i. 2. Normal appendix. 3. Normal noncontrast liver and gallbladder. 4. Slight hazy groundglass opacities in the lung bases LEFT greater than RIGHT may be infectious or inflammatory.
--- NOTE | 2025-07-31 13:52 | PC.NURSE ---
iv delay due to US in progress
[2025-07-31] MEDS: ondansetron 2 mg/ML SDV 2 mL 4 MG IVP (14:49)
[2025-07-31] MEDS: morphine 4 mg/mL SDV 1 mL IVP (14:49)
--- NOTE | 2025-07-31 15:50 | PC.NURSE ---
patient has unhooked herself from vitals throughout visit. patient educated.
--- NOTE | 2025-07-31 15:57 | ECG_ITS ---
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 [email or web address]
== END 2025-07-31 16:09 | disposition home or self-care (01) ==
PROVIDERS: Emergency Provider Family Medicine; PCP Family Medicine
DX: K80.50 Calculus of bile duct without cholangitis or cholecystitis without obstruction (principal); Z79.02 Long term (current) use of antithrombotics/antiplatelets; Z79.82 Long term (current) use of aspirin; F17.210 Nicotine dependence, cigarettes, uncomplicated
CPT/HCPCS: 36415; 74176; 76705; 80053; 81001; 83690; 85025; 93005; 96374; 96375; 99285; J1885; J2270; J2405; J7030

== ENCOUNTER → 2025-08-06 08:23 | Outpatient (BNVA) | payer MEDICAID, SELFPAY | PROVIDERS: PCP Family Medicine; Visit Provider Surgery | DX: K82.8 Other specified diseases of gallbladder (principal); R03.0 Elevated blood-pressure reading, without diagnosis of hypertension | CPT/HCPCS: 99204 ==

== ENCOUNTER 2025-08-12 08:38 | Outpatient (CLI) | payer MEDICAID, SELFPAY ==
--- NOTE | 2025-08-12 08:50 | NM_ITS ---
WS: [id number] NUCLEAR MEDICINE HIDA SCAN CLINICAL INFORMATION: RUQ PAIN TECHNIQUE: Following intravenous administration of 8.1 mCi of technetium 99m mebrofenin, images of the abdomen were obtained over the course of 60 minutes. Next, gallbladder ejection fraction was determined by obtaining preprandial and one-hour postprandial images of the gallbladder following oral ingestion of Ensure. FINDINGS: Normal hepatic uptake at 5 minutes. Normal hepatic excretion. Gallbladder is visualized by 20 minutes. No evidence of acute cholecystitis. Normal common bile duct and small bowel activity. Gallbladder ejection fraction 93% within normal limits. No evidence of chronic cholecystitis. NM/NM hepatobiliary w phar* [id number] IMPRESSION: 1. No evidence of acute for chronic cholecystitis. 2. Gallbladder ejection fraction 93% within normal limits
== END 2025-08-12 08:39 | disposition home or self-care (01) ==
LOC: RAD 08:39
PROVIDERS: PCP Family Medicine; Visit Provider Family Medicine
DX: K80.50 Calculus of bile duct without cholangitis or cholecystitis without obstruction (principal)
CPT/HCPCS: 78227; A9537